=== PATIENT | male | born 1965 | race Caucasian/White ===

== ENCOUNTER 2018-03-13 08:39 | Day surgery (SDC) | payer OTHER ==
[2018-03-13 09:42] VITALS: BMI 22.7
[2018-03-13 09:52] VITALS: O2SAT 100
[2018-03-13] MEDS ORDERED: Propofol 10 mg/ml Inj (20 ML) ONE ×2 (11:08→11:20)
[2018-03-13] MEDS ORDERED: Lactated Ringer's 500 ML IV SCH (11:15)
[2018-03-13 11:44] VITALS: TEMP 98.4
[2018-03-13 13:06] VITALS: BP 121/63; PULSE 69; RESP 12
== END 2018-03-13 12:25 | disposition home or self-care (01) ==
LOC: C.ENDO 08:39
PROVIDERS: ATTEND Internal Medicine Gastroenterology
DX: K64.0 First degree hemorrhoids (principal)
CPT/HCPCS: 45378; J2704; J3010; J7120